=== PATIENT | male | born 1970 | race American Indian/Alaskan Native ===

== ENCOUNTER 2022-01-10 11:32 | Emergency (ER) | payer SELFPAY ==
[2022-01-10 17:49] VITALS: BP 174/100
== END 2022-01-11 01:44 | disposition left against medical advice (07) ==
LOC: ED 11:32
DX: M54.9 Dorsalgia, unspecified (principal); M25.559 Pain in unspecified hip; Z53.21 Procedure and treatment not carried out due to patient leaving prior to being seen by health care provider

== ENCOUNTER 2022-01-11 13:07 | Emergency (ER) | payer OTHER ==
[2022-01-11 14:16] VITALS: BP 184/112
--- NOTE | 2022-01-11 17:16 | Emergency Department Report ---
ED Back Pain/Injury HPI - General Chief Complaint: Back Pain/Injury Stated Complaint: LOWER HIP/BACK PAIN Source: patient Limitations: No Limitations - History of Present Illness Initial Comments: 51-year-old male presents to the ED complaining of back pain x2 weeks. Patient states that he has chronic back pain and been taking [id number] medication without any relief. Patient denies any dysuria fever chills or recent IV drug use. Patient denies any trauma. Patient is alert and oriented x3. No acute distress noted. No ill appearance noted. Patient states pain is a current 5 out of 10. MD Complaint: back pain Onset/Timin -: week(s) Radiation: none Severity scale (0 -10): 5 Quality: aching Consistency: intermittent Worsens With: none - Related Data Previous Rx's Medication Instructions Recorded Last Taken Type Cyclobenzaprine [Flexeril] 10 mg PO TID PRN 15 Days #30 tab 01/11/22 Unknown Rx Naproxen [Naprosyn] 500 mg PO BID 15 Days #30 tablet 01/11/22 Unknown Rx ED Review of Systems ROS: Stated complaint: LOWER HIP/BACK PAIN Other details as noted in HPI Constitutional: denies: chills, fever Eyes: denies: eye pain, eye discharge, vision change ENT: denies: ear pain, throat pain Respiratory: denies: cough, shortness of breath, wheezing Cardiovascular: denies: chest pain, palpitations Endocrine: no symptoms reported Gastrointestinal: denies: abdominal pain, nausea, diarrhea Genitourinary: denies: urgency, dysuria Musculoskeletal: back pain. denies: joint swelling, arthralgia Skin: denies: rash, lesions Neurological: denies: headache, weakness, paresthesias Psychiatric: denies: anxiety, depression Hematological/Lymphatic: denies: easy bleeding, easy bruising ED Past Medical Hx - Medications Home Medications: Home Medications Medication Instructions Recorded Confirmed Last Taken Type Cyclobenzaprine [Flexeril] 10 mg PO TID PRN 15 Days #30 tab 01/11/22 Unknown Rx Naproxen [Naprosyn] 500 mg PO BID 15 Days #30 tablet 01/11/22 Unknown Rx ED Physical Exam - General Limitations: No Limitations General appearance: alert, in no apparent distress - Head Head exam: Present: atraumatic, normocephalic - Eye Eye exam: Present: normal appearance - ENT ENT exam: Present: mucous membranes moist - Neck Neck exam: Present: normal inspection - Respiratory Respiratory exam: Present: normal lung sounds bilaterally. Absent: respiratory distress - Cardiovascular Cardiovascular Exam: Present: regular rate, normal rhythm. Absent: systolic murmur, diastolic murmur, rubs, gallop - GI/Abdominal GI/Abdominal exam: Present: soft, normal bowel sounds - Rectal Rectal exam: Present: deferred - Extremities Exam Extremities exam: Present: normal inspection - Back Exam Back exam: Present: normal inspection - Neurological Exam Neurological exam: Present: alert, oriented X3 - Psychiatric Psychiatric exam: Present: normal affect, normal mood - Skin Skin exam: Present: warm, dry, intact, normal color. Absent: rash ED Course Vital Signs 01/11/22 14:12 Temperature 98.4 F Pulse Rate 62 Respiratory 16 Rate Blood Pressure 184/112 [Right] O2 Sat by Pulse 100 Oximetry ED Medical Decision Making - Medical Decision Making 51-year-old male presents to the ED complaining of back pain x2 weeks. Patient states that he has chronic back pain and been taking [id number] medication without any relief. Patient denies any dysuria fever chills or recent IV drug use. Patient denies any trauma. Patient is alert and oriented x3. No acute distress noted. No ill appearance noted. Patient states pain is a current 5 out of 10. Physical exam examination is unremarkable. Patient has no history of hypertension. Patient is current hypertension would not treat asymptomatic hypertension. Patient to follow-up with primary care doctor. Rechecked the patient is resting quietly quietly and comfortable and feeling better. I discussed the results of diagnostic study, my clinical impression and the plan for further treatment with the patient. Patient agrees with plan and discharge at this present time. All question addressed. I have given the patient instruction regarding a diagnosis ,expectation ,follow- up and return precaution. I explained to the patient that emergent condition may arise and to return to the ED for new worsen and any new persisting condition. I have explained the importance of following up with the primary care physician or referral physician listed below has instructed. The patient verbalized understanding of discharge instruction. Critical care attestation.: If time is entered above; I have spent that time in minutes in the direct care of this critically ill patient, excluding procedure time. ED Disposition Clinical Impression: Chronic back pain Qualifiers: Back pain location: low back pain Back pain laterality: bilateral Sciatica presence: without sciatica Qualified Code(s): M54.50 - Low back pain, unspecified Hypertension Qualifiers: Hypertension type: primary hypertension Qualified Code(s): I10 - Essential (primary) hypertension Is pt being admited?: No Does the pt Need Aspirin: No Condition: Stable Instructions: Chronic Back Pain, [id number], Managing Your Hypertension, Hypertension, Adult, Hypertension (ED) Additional Instructions: Take medication as prescribed Return to ED for any worsening symptoms Prescriptions: Cyclobenzaprine [Flexeril] 10 mg PO TID PRN 15 Days #30 tab PRN Reason: Muscle Spasm Naproxen [Naprosyn] 500 mg PO BID 15 Days #30 tablet Referrals: [facility] [Provider Group] - 3-5 Days JHONATAN LEYVA MD [Staff Physician] - 3-5 Days Forms: Work/School Release Form(ED) Time of Disposition: 17:20
[2022-01-11] MEDS ORDERED: KETOROLAC 30 MG/1 ML INJ IM ONE (17:24)
[2022-01-11] MEDS ORDERED: dexAMETHasone 20 MG/5 ML VIAL IM ONE (17:24)
== END 2022-01-12 01:36 | disposition home or self-care (01) ==
LOC: ED 13:07
DX: G89.29 Other chronic pain (principal); M54.9 Dorsalgia, unspecified; I10 Essential (primary) hypertension
CPT/HCPCS: 96372; 99282; J1100; J1885